=== PATIENT | female | born 1965 | race Caucasian/White ===

== ENCOUNTER 2023-10-24 13:26 | Emergency (ER) | payer MEDICAID ==
[~2023-10-24] VITALS: Ht 165.1 cm; Wt 69.0 kg
[2023-10-24 13:37] VITALS: O2SAT 95
[2023-10-24] MEDS ORDERED: ACET-2178 PO (16:08)
[2023-10-24 19:24] VITALS: BP 144/87; PULSE 80; RESP 19; TEMP 98.2
== END 2023-10-24 20:43 | disposition home or self-care (01) ==
LOC: ER 13:26
DX: M54.2 Cervicalgia (principal); R07.89 Other chest pain; M25.512 Pain in left shoulder; R68.84 Jaw pain; I10 Essential (primary) hypertension; Z88.5 Allergy status to narcotic agent; Z86.59 Personal history of other mental and behavioral disorders; Z98.890 Other specified postprocedural states
CPT/HCPCS: 99284